=== PATIENT | female | born 1970 | race Caucasian/White ===

== ENCOUNTER 2016-11-13 01:46 | Inpatient (IN) | payer OTHER ==
[~2016-11-13] VITALS: Ht 162.6 cm; Wt 78.8 kg
[~2016-11-13 01:46] MED LIST: 12 HOUR DECONG120 M1 PO; AUGMENTIN875 MG PO; IBUPROFEN800 MG PO; PEN-VEE K,VEET500 MG PO; XANAX1 MG PO
[2016-11-13 02:40] LABS: BASOPHIL COUNT 0.1 K/uL (0-0.1); EOSINOPHIL (%) 3.2 % (0-5); EOSINOPHIL COUNT 0.2 K/uL (0-0.3); HEMATOCRIT 39.8 % (36.0-46.0); IMMATURE GRANULOCYTE (%) 0.1 % (0.0-0.7); INSTRUMENT ABS NEUTROPHIL CT 3.7 K/uL; LYMPHOCYTE COUNT 2.8 K/uL (1.0-2.8); MCH 31.1 PG (29.0-34.0); MCHC 33.4 G/DL (30.0-36.0); MEAN PLAT.VOLUME 9.4 uM^3 (9.5-12.4); MONOCYTE (%) 6.6 % (3-12); MONOCYTE COUNT 0.5 K/uL (0-0.8); NEUTROPHIL (%) 51.3 % (45-76); NEUTROPHIL COUNT 3.7 K/uL (1.8-6.4); PLATELET COUNT 254 K/uL (156-360); RBC DIS.WIDTH-CV 13.1 % (11.8-14.6); RBC DIS.WIDTH-SD 44.5 % (39-53); RED BLOOD COUNT 4.28 M/uL (3.80-5.20); WHITE BLOOD COUNT 7.3 K/uL (4.1-10.2)
[2016-11-13 02:57] LABS: CHLORIDE 107 mEq/L (99-109); POTASSIUM 3.8 mEq/L (3.7-5.4); SODIUM 140 mEq/L (136-147)
[2016-11-13 02:59] LABS: GLUCOSE 121 mg/dL (70-99)
[2016-11-13 03:00] LABS: ANION GAP 7 MEQ/L (2-14)
[2016-11-13 03:02] LABS: GFR ESTIMATE (CALCULATED) 57 mL/min/; SERUM ETHYL ALCOHOL < 10 mg/dL
[2016-11-13 03:03] LABS: UREA NITROGEN (BUN) 20 mg/dL (9-23)
[2016-11-13 03:40] LABS: AMPHETAMINE NEGATIVE (500 ng/mL); BARBITURATES NEGATIVE (200 ng/mL); BENZODIAZEPINES NEGATIVE (150 ng/mL); COCAINE PRESUMPTIVE POSITIVE (150 ng/mL); INTERNAL CONTROLS VALID? YES; METHADONE NEGATIVE (200 ng/mL); METHAMPHETAMINE NEGATIVE (500 ng/mL); OPIATES (MORPHINE) PRESUMPTIVE POSITIVE (100 ng/mL); OXYCODONE NEGATIVE (100 ng/mL); PHENCYCLIDINE NEGATIVE (25 ng/mL); PROPOXYPHENE NEGATIVE (300 ng/mL); THC CANNABINOIDS PRESUMPTIVE POSITIVE (50 ng/mL); TRICYCLIC ANTIDEPRESSANTS NEGATIVE (300 ng/mL)
[2016-11-13 03:41] LABS: ADD MEDTOX COMMENT Y
[2016-11-13 09:00] VITALS: BP 114/71
[2016-11-13 09:01] VITALS: BP 114/70
[2016-11-13 15:46] VITALS: BP 105/51
[2016-11-14 07:45] VITALS: BP 115/70
[2016-11-14 15:42] VITALS: BP 95/50
[2016-11-15 07:54] VITALS: BP 101/63
[2016-11-15 15:22] VITALS: BP 92/56
[2016-11-15 21:40] VITALS: BP 123/72
[2016-11-16 07:19] VITALS: BP 125/60
[2016-11-16 15:24] VITALS: BP 119/69
[2016-11-17 07:28] VITALS: BP 104/56
[2016-11-17 16:18] VITALS: BP 115/58
[2016-11-18 07:52] VITALS: BP 125/70
[2016-11-21] MEDS ORDERED: ATARAX,VISTARIL50 MG PO (14:09)
== END 2016-11-18 12:18 | disposition home or self-care (01) | DRG 881 ==
LOC: EME 01:46 → EDOF 05:03 → 1WEST 05:03
PROVIDERS: Emergency Medicine
PROC: HZ2ZZZZ Detoxification Services for Substance Abuse Treatment (ICD-10-PCS; principal; 2016-11-13)
DX: F32.9 Major depressive disorder, single episode, unspecified (principal); F41.1 Generalized anxiety disorder; F11.23 Opioid dependence with withdrawal; F14.10 Cocaine abuse, uncomplicated; F17.200 Nicotine dependence, unspecified, uncomplicated; F41.0 Panic disorder [episodic paroxysmal anxiety]; R45.851 Suicidal ideations; F12.90 Cannabis use, unspecified, uncomplicated; M54.5 Low back pain; E05.00 Thyrotoxicosis with diffuse goiter without thyrotoxic crisis or storm; Z59.0 Homelessness
CPT/HCPCS: 80048; 84439; 84443; 84999; 85025; 90839; 97150 GO; 97166 GO; 99281; 99285; G0480; Q0169; Q0177

== ENCOUNTER 2016-11-21 16:01 | Inpatient (IN) | payer OTHER ==
[~2016-11-21] VITALS: Ht 162.6 cm; Wt 76.4 kg
[2016-11-21 20:39] VITALS: BP 110/55
[2016-11-22 07:22] VITALS: BP 118/65
[2016-11-22 15:15] VITALS: BP 118/74
[2016-11-23 07:00] VITALS: BP 108/57
[2016-11-23 16:33] VITALS: BP 136/78
[2016-11-24 08:00] VITALS: BP 109/71
[2016-11-24 15:59] VITALS: BP 97/55
[2016-11-25 07:44] VITALS: BP 100/56
== END 2016-11-25 09:41 | disposition other institution (70) | DRG 882 ==
LOC: EME 16:01 → 1WEST 19:38 → EDOF 19:38 → 1WEST 19:38
DX: F43.23 Adjustment disorder with mixed anxiety and depressed mood (principal); R45.851 Suicidal ideations; F11.20 Opioid dependence, uncomplicated; F14.20 Cocaine dependence, uncomplicated; Z59.0 Homelessness; F12.90 Cannabis use, unspecified, uncomplicated; R11.2 Nausea with vomiting, unspecified; R19.7 Diarrhea, unspecified; F17.200 Nicotine dependence, unspecified, uncomplicated
CPT/HCPCS: 90837; 99281; 99285; Q0169; Q0177

== ENCOUNTER → 2016-11-21 | Emergency (ER) | payer OTHER ==
[~2016-11-21] VITALS: Ht 162.6 cm; Wt 77.7 kg
[~2016-11-21] MED LIST changes: +ATARAX,VISTARIL50 MG PO
[2016-11-21 09:35] LABS: HEMATOCRIT 42.7 % (36.0-46.0); MCH 31.3 PG (29.0-34.0); MEAN PLAT.VOLUME 10.1 uM^3 (9.5-12.4); PLATELET COUNT 272 K/uL (156-360); RBC DIS.WIDTH-CV 12.6 % (11.8-14.6); RBC DIS.WIDTH-SD 42.4 % (39-53); RED BLOOD COUNT 4.64 M/uL (3.80-5.20); WHITE BLOOD COUNT 7.9 K/uL (4.1-10.2)
[2016-11-21 09:50] LABS: CHLORIDE 106 mEq/L (99-109); POTASSIUM 3.6 mEq/L (3.7-5.4); SODIUM 140 mEq/L (136-147)
[2016-11-21 09:52] LABS: GLUCOSE 95 mg/dL (70-99)
[2016-11-21 09:53] LABS: ANION GAP 10 MEQ/L (2-14)
[2016-11-21 09:55] LABS: SERUM ETHYL ALCOHOL < 10 mg/dL
[2016-11-21 09:56] LABS: GFR ESTIMATE (CALCULATED) > 59 mL/min/
[2016-11-21 09:57] LABS: UREA NITROGEN (BUN) 17 mg/dL (9-23)
[2016-11-21 11:04] LABS: AMPHETAMINE NEGATIVE (500 ng/mL); BARBITURATES NEGATIVE (200 ng/mL); BENZODIAZEPINES NEGATIVE (150 ng/mL); COCAINE PRESUMPTIVE POSITIVE (150 ng/mL); INTERNAL CONTROLS VALID? YES; METHADONE NEGATIVE (200 ng/mL); METHAMPHETAMINE NEGATIVE (500 ng/mL); OPIATES (MORPHINE) NEGATIVE (100 ng/mL); OXYCODONE NEGATIVE (100 ng/mL); PHENCYCLIDINE NEGATIVE (25 ng/mL); PROPOXYPHENE NEGATIVE (300 ng/mL); THC CANNABINOIDS NEGATIVE (50 ng/mL); TRICYCLIC ANTIDEPRESSANTS NEGATIVE (300 ng/mL)
[2016-11-21 11:05] LABS: ADD MEDTOX COMMENT Y
[2016-11-21 14:20] VITALS: BP 114/79
== END | disposition home or self-care (01) ==
LOC: EME 08:24
DX: F32.9 Major depressive disorder, single episode, unspecified (principal); F41.9 Anxiety disorder, unspecified; F14.10 Cocaine abuse, uncomplicated; F11.10 Opioid abuse, uncomplicated; F17.200 Nicotine dependence, unspecified, uncomplicated; Z88.6 Allergy status to analgesic agent; Z90.49 Acquired absence of other specified parts of digestive tract
CPT/HCPCS: 80048; 84999; 85027; 90839; 99281; 99285; G0480

== ENCOUNTER 2017-07-17 11:27 | Emergency (ER) | payer OTHER ==
[~2017-07-17] VITALS: Ht 162.6 cm; Wt 86.0 kg
[2017-07-17 15:08] VITALS: BP 118/60
== END 2017-07-17 15:09 | disposition home or self-care (01) ==
LOC: EME 11:27
DX: S05.01XA Injury of conjunctiva and corneal abrasion without foreign body, right eye, initial encounter (principal); W22.8XXA Striking against or struck by other objects, initial encounter; Y93.01 Activity, walking, marching and hiking; Y92.007 Garden or yard of unspecified non-institutional (private) residence as the place of occurrence of the external cause; F17.200 Nicotine dependence, unspecified, uncomplicated; Z71.6 Tobacco abuse counseling; Z88.6 Allergy status to analgesic agent
CPT/HCPCS: 99281; 99284